=== PATIENT | female | born 1955 | race Two or more races ===

== ENCOUNTER 2019-07-09 16:46 | Emergency (ER) | payer BC ==
[~2019-07-09] VITALS: Ht 165.1 cm; Wt 95.0 kg
[2019-07-09] MEDS ORDERED: NAPROXEN 250MG TABLET PO ONE (18:15)
[2019-07-09] MEDS ORDERED: NAPROXEN 250MG TABLET PO NR (18:30)
[2019-07-09 18:33] LABS: BASOPHILS % 0.4 % (0.0-2.0); EOSINOPHILS % 0.5 % (0.0-5.0); HEMATOCRIT. 37.3 % (36.0-48.0); HEMOGLOBIN. 12.2 g/dL (12.0-16.0); LYMPHOCYTES % 13.2 % (20.0-50.0); MEAN CORPUSCULAR HEMOGLOBIN 28.4 pg (28.0-32.0); MEAN CORPUSCULAR VOLUME 86.8 fL (81.0-99.0); MEAN PLATELET VOLUME 7.5 fl (7.4-10.4); NEUTROPHILS % 81.9 % (40.0-76.0); PLATELET 300 x1000/uL (130-400); RED BLOOD CELL COUNT 4.29 mill/uL (4.2-5.4); RED CELL DISTRIBUTION WIDTH 15.6 % (11.6-14.6)
[2019-07-09 18:35] LABS: PROTHROMBIN TIME 10.7 sec (9.6-11.0)
[2019-07-09 18:36] LABS: CHLORIDE 108 mEq/L (98-107)
[2019-07-09 20:49] VITALS: BP 127/85
== END 2019-07-09 20:50 | disposition home or self-care (01) ==
LOC: ER 16:46
DX: R51 Headache (principal); Z88.6 Allergy status to analgesic agent; Z98.890 Other specified postprocedural states
CPT/HCPCS: 36415; 99284